=== PATIENT | male | born 1955 | race Caucasian/White ===

== ENCOUNTER 2022-02-14 22:39 | Emergency (ER) | payer MEDICARE, MEDICAID, SELFPAY ==
[2022-02-14 22:44] VITALS: BP 148/88; PULSE 95; RESP 20; TEMP 36.7; O2SAT 96
[2022-02-14 23:40] VITALS: PULSE 76; O2SAT 97
[2022-02-14 23:43] VITALS: BP 156/82; PULSE 81; O2SAT 100
[2022-02-15] VITALS (10 sets, daily range): BP systolic 122–143; BP diastolic 75–85; PULSE 63–76; RESP 14–22; O2SAT 96–100
--- NOTE | 2022-02-15 01:27 | ED.GENADULT ---
HPI - General Adult General Chief complaint: Weakness Stated complaint: Parkinson's Time Seen by Provider: 02/15/22 01:27 Source: patient Mode of arrival: Ambulatory History of Present Illness HPI narrative: 67-year-old gentleman with a history of Parkinson's disease lives independently with a caregiver was on his way to [facility] from [place] but stopped for further evaluation in the emergency department because of increasing weakness. He states that he is always weak with a sense of balance off with some back pain however with the last 2 days it has been worse. He has no localizing symptoms. He does not complain of fevers, cough, chills, abdominal pain, vomiting, diarrhea. He notes that he has a prostate issues and difficulty with fully emptying his bladder. He has not recently been having difficulties with diarrhea or constipation. He has no focal neurologic changes. Related Data Allergies Allergy/AdvReac Type Severity Reaction Status Date / Time NYQUIL Allergy Unknown Uncoded 01/11/18 12:26 Review of Systems Review of Systems Narrative: Remainder of complete review of systems is otherwise unremarkable except for that included in the HPI. Patient History Medical History (Updated 02/15/22 @ 03:18 by Meka Roberson MD) Parkinsons disease Exam Initial Vital Signs Initial Vital Signs: Vital Signs Temperature 98.1 F 02/14/22 22:44 Pulse Rate 95 H 02/14/22 22:44 Respiratory Rate 20 02/14/22 22:44 Blood Pressure 148/88 H 02/14/22 22:44 Pulse Oximetry 96 02/14/22 22:44 General: Chronically ill-appearing but in no acute distress. Able to give a complete and coherent history. Well-nourished well-developed HEENT: Moist mucous membranes, normal sclera with reactive pupils, mild dysarthria Neck: No JVD, supple Respiratory: Lungs are clear to auscultation, no wheezing no rales no rhonchi. Full and symmetrical air movement Cardiac: Regular rate and rhythm no murmurs no bruits Abdomen: Soft, nontender, good bowel tones, no flank pain Skin: Warm and dry, no rashes Neurologic: Some minor upper extremity weakness, contractures and cogwheel rigidity without significant tremor appreciated. Extremities: No trauma, well perfused Psych: Cooperative, appropriate insight and affect Course Orders Ordered: ED Orders 02/15/22 00:30 Complete Blood Count AUTO DIFF Stat Comprehensive Metabolic Panel Stat Magnesium Stat Troponin I Stat 02/15/22 00:50 EKG-12 Lead Stat 02/15/22 02:23 Urine Microscopic Stat Vital Signs Vital signs: Vital Signs - 8 hr 02/14/22 22:44 02/14/22 23:40 02/14/22 23:43 Temperature 98.1 F Pulse Rate 95 H 76 81 Respiratory Rate 20 Blood Pressure 148/88 H 156/82 H Pulse Oximetry 96 97 100 02/15/22 00:00 02/15/22 00:30 02/15/22 01:00 Temperature Pulse Rate 65 73 63 Respiratory Rate 14 15 Blood Pressure 131/77 137/80 Pulse Oximetry 96 98 99 02/15/22 01:03 02/15/22 01:30 02/15/22 02:00 Temperature Pulse Rate 63 74 67 Respiratory Rate 17 18 22 Blood Pressure 127/75 122/80 131/85 Pulse Oximetry 99 100 02/15/22 02:30 02/15/22 03:00 Temperature Pulse Rate 65 65 Respiratory Rate 19 18 Blood Pressure 129/81 138/83 Pulse Oximetry Medical Decision Making Lab Data Result diagrams: 02/15/22 00:30 02/15/22 00:30 Labs: Lab Results 02/15/22 02/15/22 02/15/22 Range/Units 00:30 00:30 02:23 WBC 5.1 (4.5-11.0) X10^3/uL RBC 4.83 (4.5-5.9) X10^6/uL Hgb 14.5 (13.5-17.5) g/dL Hct 42.5 (41-53) % MCV 87.9 (80-100) fL MCH 30.1 (26-34) PG MCHC 34.2 (30-36) % RDW 13.9 (11.6-14.8) % Plt Count 288 (150-400) X10^3/uL Neut % (Auto) 69.0 (50-75) % Lymph % (Auto) 21.1 L (25-40) % Green % (Auto) 7.8 (3-14) % Eos % (Auto) 1.7 L (2-4) % Baso % (Auto) 0.4 (0-2) % Neut # (Auto) 3500 (7705-8250) /uL Lymph # (Auto) 1100 (4515-1621) /uL Green # (Auto) 400 (0-900) /uL Eos # (Auto) 100 (0-450) /uL Baso # (Auto) 0 (0-100) /uL Sodium 138 (137-145) mmol/L Potassium 3.9 (3.4-5.1) mmol/L Chloride 102 (98-107) mmol/L Carbon Dioxide 29 (22-32) mmol/L BUN 24 H (9-20) mg/dL Creatinine 0.78 (0.66-1.25) mg/dL Estimated GFR > 60 (>60) mL/min BUN/Creatinine Ratio 30.8 H (6-22) Glucose 94 (80-110) mg/dL Calcium 8.8 (8.4-10.2) mg/dL Magnesium 2.2 (1.6-2.3) mg/dL Total Bilirubin 1.4 H (0.2-1.3) mg/dL AST 32 (17-59) IU/L ALT < 4 (<50) IU/L Alkaline Phosphatase 63 (38-126) U/L Troponin I < 0.012 (0.01-0.034) ng/mL Total Protein 7.7 (6.3-8.2) g/dL Albumin 4.6 (3.5-5.0) g/dL Globulin 3.1 (1.7-4.1) g/dL Albumin/Globulin Ratio 1.5 (1.0-2.8) Urine RBC None seen (0-5/HPF) Urine WBC None seen (0-5/HPF) Urine Bacteria None seen (None) Ur Culture Indicated? Cult not indicated Urine Dip Bedside Urine Glucose Negative Bedside Urine Bilirubin - Negative Bedside Urine Ketone + 15 Urine Specific [place] 1.030 Bedside Urine Occult Blood - Negative Bedside Urine pH 5.5 Bedside Urine Protein - Negative Bedside Urine Urobilinogen - Negative Bedside Urine Nitrite - Negative Bedside Urine Leukocytes - Negative Esterase Point of care testing: Urine Dip Bedside Urine Glucose Negative Bedside Urine Bilirubin - Negative Bedside Urine Ketone + 15 Urine Specific [place] 1.030 Bedside Urine Occult Blood - Negative Bedside Urine pH 5.5 Bedside Urine Protein - Negative Bedside Urine Urobilinogen - Negative Bedside Urine Nitrite - Negative Bedside Urine Leukocytes - Negative Esterase ECG Data Interpretation: Rhythm at a rate of 61 Normal intervals, normal axis No acute ischemic changes MDM Narrative Medical decision making narrative: 67-year-old gentleman with a history of Parkinson's disease with chronic weakness who has felt more weak over the last 48 hours. Blood work is unremarkable. There are no signs of significant infection, electrolyte abnormalities, renal dysfunction, urinary tract infection, cardiac arrhythmia, acute coronary syndrome or alternate explanations for the fatigue that he currently is experiencing. All these findings reviewed with him. Recommended that he follow-up with his primary care doctor or neurologist. At this point he is safe for home discharge Discharge Plan Departure Patient Disposition: Home Clinical Impression: Weakness, Parkinson's disease Instructions: DI for Parkinson Disease Activity Restrictions/Additional Instructions: Thank you for coming in today Your blood work and EKG were quite reassuring. There is no sign of infection, no bladder infection, no electrolyte abnormalities, your renal function is nice and normal. At this time, I do not have an explanation for why you are experiencing increasing weakness. I would recommend that you follow-up with your primary care doctor and/or neurologist. I wish you the best Referrals: Constantino Bowie MD [Primary Care Provider] -
[2022-02-15 01:54] LABS: Add Manual Diff / Slide Review NO; Basophils Absolute Auto 0 /uL (0-100); Basophils Percent Auto 0.4 % (0-2); Eosinophils Absolute Auto 100 /uL (0-450); Eosinophils Percent Auto 1.7 % (2-4); Hematocrit 42.5 % (41-53); Hemoglobin 14.5 g/dL (13.5-17.5); Lymphocytes Absolute Auto 1100 /uL (1100-4500); Lymphocytes Percent Auto 21.1 % (25-40); Mean Corpuscular HGB Conc 34.2 % (30-36); Mean Corpuscular Hemoglobin 30.1 PG (26-34); Mean Corpuscular Volume 87.9 fL (80-100); Monocytes Absolute Auto 400 /uL (0-900); Monocytes Percent Auto 7.8 % (3-14); Neutrophils Absolute Auto 3500 /uL (1500-7000); Platelet Count 288 X10^3/uL (150-400); Red Blood Cell Count 4.83 X10^6/uL (4.5-5.9); Red Cell Distribution Width 13.9 % (11.6-14.8); White Blood Cell Count 5.1 X10^3/uL (4.5-11.0)
[2022-02-15 01:59] LABS: Albumin 4.6 g/dL (3.5-5.0); Albumin Globulin Ratio 1.5 (1.0-2.8); Alkaline Phosphatase 63 U/L (38-126); Aspartate Aminotransferase 32 IU/L (17-59); BUN Creatinine Ratio 30.8 (6-22); Bilirubin Total 1.4 mg/dL (0.2-1.3); Blood Urea Nitrogen 24 mg/dL (9-20); Calcium 8.8 mg/dL (8.4-10.2); Carbon Dioxide 29 mmol/L (22-32); Chloride 102 mmol/L (98-107); Estimated Glomerular Filt Rate > 60 mL/min (>60); Globulin 3.1 g/dL (1.7-4.1); Glucose 94 mg/dL (80-110); HEMOLYSIS < 15 (0-50); Magnesium 2.2 mg/dL (1.6-2.3); Potassium 3.9 mmol/L (3.4-5.1); Sodium 138 mmol/L (137-145); Total Protein 7.7 g/dL (6.3-8.2)
[2022-02-15 02:10] LABS: Troponin I < 0.012 ng/mL (0.01-0.034)
[2022-02-15 02:13] LABS: Alanine Aminotransferase < 4 IU/L (<50)
[2022-02-15 02:33] LABS: Bacteria Urine None Seen; Culture Indicated Urine Cult Not Indicated; RBC Urine None Seen (0-5/HPF); WBC Urine None Seen (0-5/HPF)
== END 2022-02-15 04:14 | disposition home or self-care (01) ==
PROVIDERS: Emergency Provider Emergency Medicine; PCP Family Medicine
DX: R53.1 Weakness (principal); G20 Parkinson's disease; R33.9 Retention of urine, unspecified; R07.9 Chest pain, unspecified
CPT/HCPCS: 36415; 80053; 81003; 81015; 83735; 84484; 85025; 93005; 93010; 99283